=== PATIENT | female | born 1985 | race Caucasian/White ===

== ENCOUNTER 2017-08-29 00:38 | Inpatient (IN) | payer MEDICAID, OTHER ==
[~2017-08-29] VITALS: Ht 162.6 cm; Wt 81.2 kg
[2017-08-29] MEDS ORDERED: BUPR75 PO (01:04)
[2017-08-29] MEDS ORDERED: OMEP20 PO (01:04)
[2017-08-29 01:51] LABS: BASOPHILS # (AUTO) 0.08 K/uL (0.00-0.20); BASOPHILS % (AUTO) 0.7 % (0.0-2.0); EOSINOPHILS # (AUTO) 0.15 K/uL (0.00-0.70); EOSINOPHILS % (AUTO) 1.25 % (1.0-6.0); HEMATOCRIT 37.2 % (36-46); HEMOGLOBIN 12.8 g/dL (12.0-16.0); LYMPHOCYTES # (AUTO) 2.9 K/uL (1.0-4.8); LYMPHOCYTES % (AUTO) 24.1 % (22.0-44.0); MEAN CORPUSCULAR HEMOGLOBIN 31.4 pg (26.0-34.0); MEAN CORPUSCULAR HGB CONC 34.5 G/dL (31.0-37.0); MEAN CORPUSCULAR VOLUME 91 fL (80-100); MONOCYTES # (AUTO) 0.9 K/uL (0.1-1.0); MONOCYTES % (AUTO) 7.1 % (2.0-9.0); NEUTROPHILS # (AUTO) 8.1 K/uL (1.8-7.7); NEUTROPHILS % (AUTO) 66.8 % (40.0-70.0); PLATELET COUNT (AUTO) 260 K/uL (150-450); RED BLOOD CELL COUNT(AUTO) 4.09 MIL/uL (4.00-5.20); RED CELL DISTRIBUTION WIDTH 13.9 % (11.5-14.5); WHITE BLOOD COUNT (AUTO) 12.1 K/uL (4.5-11.0)
[2017-08-29 02:00] LABS: ANION GAP 10 mmol/L (8-16); CALCIUM, TOTAL 9.7 mg/dL (8.8-10.5); CARBON DIOXIDE 26 mmol/L (22-29); CHLORIDE 101 mmol/L (98-107); CREATININE 0.86 mg/dL (0.60-1.30); GLOMERULAR FILTR. RATE CALC > 60 mL/min (>60); POTASSIUM 4.1 mmol/L (3.5-5.1); SODIUM SERUM 137 mmol/L (136-145); UREA NITROGEN, BLOOD 16 mg/dL (7-18)
[2017-08-29 02:07] LABS: ALANINE AMINOTRANSFERASE 28 U/L (12-78); ALBUMIN 4.1 g/dL (3.4-5.0); ASPARTATE AMINOTRANSFERASE 24 U/L (15-37); BILIRUBIN,TOTAL 0.8 mg/dL (0.1-1.0); TOTAL PROTEIN, SERUM 7.8 g/dL (6.4-8.2)
[2017-08-29] MEDS ORDERED: LORazepam 2 MG TABLET PO PRN (03:45)
[2017-08-29] MEDS ORDERED: HALOPERIDOL 5 MG TABLET PO PRN (03:45)
[2017-08-29] MEDS ORDERED: ZOLPIDEM TARTRATE 10 MG TABLET PO PRN (03:45)
[2017-08-29 06:22] VITALS: BP 118/73
[2017-08-29] MEDS ORDERED: IBUPROFEN 400 MG TABLET PO PRN (06:30)
[2017-08-29] MEDS ORDERED: INFLUENZA VIRUS VACCINE QVS 2017-18 (3YR+)/PF 60 MCG/0.5 ML SYRINGE IM ONE (06:30)
[2017-08-29] MEDS ORDERED: ACETAMINOPHEN 325 MG TABLET PO PRN (06:30)
[2017-08-29 08:18] VITALS: BP 124/75
[2017-08-29] MEDS: OMEPRAZOLE 20 MG CAPSULE PO SCH (08:41)
[2017-08-29] MEDS: BuPROPion HCL 75 MG TABLET PO SCH ×2 (13:24→16:29)
[2017-08-29 16:14] VITALS: BP 109/66
[2017-08-29 17:17] VITALS: BP 114/72
[2017-08-29] MEDS: QUEtiapine FUMARATE 25 MG TABLET PO SCH (20:04)
[2017-08-30 03:45] VITALS: BP 127/79
[2017-08-30 08:15] VITALS: BP 124/70
[2017-08-30] MEDS: OMEPRAZOLE 20 MG CAPSULE PO SCH (08:35)
[2017-08-30] MEDS: BuPROPion HCL 75 MG TABLET PO SCH ×3 (08:35→16:03)
[2017-08-30 16:11] VITALS: BP 120/64
[2017-08-30] MEDS: QUEtiapine FUMARATE 25 MG TABLET PO SCH (20:32)
[2017-08-31 06:57] VITALS: BP 107/57
[2017-08-31 07:19] LABS: EOSINOPHILS % (AUTO) 2.5 % (1.0-6.0); HEMATOCRIT 35.8 % (36-46); HEMOGLOBIN 12.3 g/dL (12.0-16.0); LYMPHOCYTES % (AUTO) 36.4 % (22.0-44.0); MEAN CORPUSCULAR HEMOGLOBIN 31.4 pg (26.0-34.0); MEAN CORPUSCULAR HGB CONC 34.2 G/dL (31.0-37.0); MEAN CORPUSCULAR VOLUME 92 fL (80-100); MONOCYTES # (AUTO) 0.7 K/uL (0.1-1.0); MONOCYTES % (AUTO) 8.3 % (2.0-9.0); NEUTROPHILS # (AUTO) 4.3 K/uL (1.8-7.7); NEUTROPHILS % (AUTO) 51.8 % (40.0-70.0); PLATELET COUNT (AUTO) 263 K/uL (150-450); RED CELL DISTRIBUTION WIDTH 13.9 % (11.5-14.5); WHITE BLOOD COUNT (AUTO) 8.3 K/uL (4.5-11.0)
[2017-08-31 07:56] LABS: CHOL/HDL RATIO 6.1 (3.9-5.7); THYROID STIMULATING HORMONE 1.27 uIU/mL (0.36-3.74)
[2017-08-31 08:05] VITALS: BP 115/94
[2017-08-31] MEDS: BuPROPion HCL 75 MG TABLET PO SCH ×3 (08:31→16:27)
[2017-08-31] MEDS: OMEPRAZOLE 20 MG CAPSULE PO SCH (08:31)
[2017-08-31 16:05] VITALS: BP 120/73
[2017-08-31] MEDS: QUEtiapine FUMARATE 25 MG TABLET PO SCH (20:02)
[2017-09-01 00:36] VITALS: BP 101/62
[2017-09-01 08:16] VITALS: BP 112/69
[2017-09-01] MEDS: OMEPRAZOLE 20 MG CAPSULE PO SCH (08:49)
[2017-09-01] MEDS: BuPROPion HCL 75 MG TABLET PO SCH ×3 (08:49→16:07)
[2017-09-01 16:00] VITALS: BP 108/60
[2017-09-01] MEDS: QUEtiapine FUMARATE 25 MG TABLET PO SCH (20:10)
[2017-09-02 00:44] VITALS: BP 108/60
[2017-09-02 08:08] VITALS: BP 104/61
[2017-09-02] MEDS: OMEPRAZOLE 20 MG CAPSULE PO SCH (08:40)
[2017-09-02] MEDS: BuPROPion HCL 75 MG TABLET PO SCH ×3 (08:40→16:08)
[2017-09-02 16:27] VITALS: BP 119/86
[2017-09-02] MEDS: QUEtiapine FUMARATE 25 MG TABLET PO SCH (20:10)
[2017-09-03 06:48] VITALS: BP 100/61
[2017-09-03 08:11] VITALS: BP 109/60
[2017-09-03] MEDS: OMEPRAZOLE 20 MG CAPSULE PO SCH (08:32)
[2017-09-03] MEDS: BuPROPion HCL 75 MG TABLET PO SCH ×3 (08:32→16:16)
[2017-09-03 17:00] VITALS: BP 113/74
[2017-09-03] MEDS: QUEtiapine FUMARATE 25 MG TABLET PO SCH (20:32)
[2017-09-04 00:09] VITALS: BP 108/63
[2017-09-04] MEDS ORDERED: QUET25TA PO (07:58)
[2017-09-04] MEDS: OMEPRAZOLE 20 MG CAPSULE PO SCH (08:46)
[2017-09-04] MEDS: BuPROPion HCL 75 MG TABLET PO SCH (08:46)
[2017-09-04 09:30] VITALS: BP 114/61
== END 2017-09-04 13:26 | disposition home or self-care (01) | DRG 750 ==
LOC: EMS 00:39 → B2S 04:00
PROVIDERS: ADMIT Psychiatry & Neurology Psychiatry; ATTEND Psychiatry & Neurology Psychiatry
DX: F25.1 Schizoaffective disorder, depressive type (principal); R45.851 Suicidal ideations; F41.9 Anxiety disorder, unspecified; K21.9 Gastro-esophageal reflux disease without esophagitis; F15.10 Other stimulant abuse, uncomplicated; Z71.51 Drug abuse counseling and surveillance of drug abuser
CPT/HCPCS: 84443; 99285; G0480

== ENCOUNTER 2017-09-28 14:22 | Inpatient (IN) | payer MEDICAID, OTHER ==
[~2017-09-28] VITALS: Ht 162.6 cm; Wt 79.8 kg
[~2017-09-28 14:22] MED LIST: BUPR75 PO; OMEP20 PO; QUET25TA PO
[2017-09-28 15:08] LABS: EOSINOPHILS % (AUTO) 0.4 % (1.0-6.0); HEMATOCRIT 38.5 % (36-46); HEMOGLOBIN 13.5 g/dL (12.0-16.0); LYMPHOCYTES # (AUTO) 4.2 K/uL (1.0-4.8); MEAN CORPUSCULAR HEMOGLOBIN 31.1 pg (26.0-34.0); MEAN CORPUSCULAR HGB CONC 34.9 G/dL (31.0-37.0); MEAN CORPUSCULAR VOLUME 89 fL (80-100); MONOCYTES # (AUTO) 0.8 K/uL (0.1-1.0); MONOCYTES % (AUTO) 6.8 % (2.0-9.0); NEUTROPHILS # (AUTO) 6.8 K/uL (1.8-7.7); NEUTROPHILS % (AUTO) 56.8 % (40.0-70.0); PLATELET COUNT (AUTO) 308 K/uL (150-450); RED BLOOD CELL COUNT(AUTO) 4.33 MIL/uL (4.00-5.20); RED CELL DISTRIBUTION WIDTH 13.7 % (11.5-14.5)
[2017-09-28 15:37] LABS: ALANINE AMINOTRANSFERASE 31 U/L (12-78); ALBUMIN 4.2 g/dL (3.4-5.0); ALKALINE PHOSPHATASE 85 U/L (46-116); ANION GAP 15 mmol/L (8-16); ASPARTATE AMINOTRANSFERASE 30 U/L (15-37); BILIRUBIN,TOTAL 0.6 mg/dL (0.1-1.0); CALCIUM, TOTAL 9.5 mg/dL (8.8-10.5); CARBON DIOXIDE 21 mmol/L (22-29); CHLORIDE 100 mmol/L (98-107); CREATININE 0.86 mg/dL (0.60-1.30); GLOMERULAR FILTR. RATE CALC > 60 mL/min (>60); GLUCOSE,RANDOM 81 mg/dL (70-110); POTASSIUM 3.8 mmol/L (3.5-5.1); SODIUM SERUM 136 mmol/L (136-145); TOTAL PROTEIN, SERUM 8.2 g/dL (6.4-8.2); UREA NITROGEN, BLOOD 11 mg/dL (7-18)
[2017-09-28 16:08] LABS: AMPHET/METH SCREEN,URINE POSITIVE (NEGATIVE); BARBITURATE SCREEN, URINE NEGATIVE (NEGATIVE); BENZODIAZEPINES SCREEN,URINE NEGATIVE (NEGATIVE); CANNABINOID SCREEN,URINE NEGATIVE (NEGATIVE); COCAINE SCREEN,URINE NEGATIVE (NEGATIVE); METHADONE SCREEN, URINE NEGATIVE (NEGATIVE); OPIATE SCREEN,URINE NEGATIVE (NEGATIVE)
[2017-09-28 16:13] LABS: PHENCYCLIDINE SCREEN,URINE NEGATIVE (NEGATIVE)
[2017-09-28] MEDS ORDERED: LORazepam 2 MG TABLET PO ONE (17:00)
[2017-09-28] MEDS ORDERED: HALOPERIDOL 5 MG TABLET PO ONE (17:00)
[2017-09-28] MEDS ORDERED: QUEtiapine FUMARATE 100 MG TABLET PO PRN (17:45)
[2017-09-28] MEDS ORDERED: LORazepam 2 MG TABLET PO PRN (17:45)
[2017-09-28] MEDS ORDERED: BuPROPion HCL 75 MG TABLET PO SCH (20:08)
[2017-09-28 20:34] VITALS: BP 92/60
[2017-09-28] MEDS ORDERED: INFLUENZA VIRUS VACCINE QVS 2017-18 (3YR+)/PF 60 MCG/0.5 ML SYRINGE IM ONE (20:45)
[2017-09-28] MEDS ORDERED: QUEtiapine FUMARATE 25 MG TABLET PO SCH (21:00)
[2017-09-29] VITALS (7 sets, daily range): BP systolic 120–128; BP diastolic 68–99
[2017-09-29] MEDS: OMEPRAZOLE 20 MG CAPSULE PO SCH (06:17)
[2017-09-29] MEDS ORDERED: LOPERAMIDE HCL 2 MG CAPSULE PO PRN (06:30)
[2017-09-29] MEDS ORDERED: PROMETHAZINE HCL 25 MG TABLET PO PRN (06:30)
[2017-09-29] MEDS ORDERED: GuaiFENesin/D-METHORPHAN [SUGAR-FREE] 200-20MG/10 ML SYRUP UDCUP PO PRN (06:30)
[2017-09-29] MEDS ORDERED: HydrOXYzine PAMOATE 50 MG CAPSULE PO PRN (06:30)
[2017-09-29] MEDS ORDERED: ACETAMINOPHEN 325 MG TABLET PO PRN ×2 (06:30→20:45)
[2017-09-29] MEDS ORDERED: TUBERCULIN, PURIFIED PROTEIN DERIVATIVE 5 TU/0.1 ML SYG ID ONE (06:30)
[2017-09-29] MEDS ORDERED: MAGNESIUM HYDROXIDE SUSPENSION 30 ML UDCUP PO PRN (06:30)
[2017-09-29] MEDS ORDERED: MAG HYDROX/AL HYDROX/SIMETH ES 30 ML SUSPENSION UDCUP PO PRN (06:30)
[2017-09-29] MEDS ORDERED: DIAZEPAM 10 MG TABLET PO PRN (06:45)
[2017-09-29] MEDS: MULTIVITAMINS WITH MINERALS, THERAPEUTIC TABLET PO SCH (09:31)
[2017-09-29] MEDS: THIAMINE HCL 100 MG TABLET PO SCH ×2 (09:31→16:33)
[2017-09-29] MEDS: FOLIC ACID 1 MG TABLET PO SCH (09:32)
[2017-09-29] MEDS: NALTREXONE HCL 50 MG TABLET PO SCH (09:32)
[2017-09-29] MEDS: QUEtiapine FUMARATE 25 MG TABLET PO SCH (20:42)
[2017-09-29] MEDS ORDERED: IBUPROFEN 400 MG TABLET PO PRN (20:45)
[2017-09-30 03:20] VITALS: BP 127/75
[2017-09-30] MEDS: OMEPRAZOLE 20 MG CAPSULE PO SCH (06:58)
[2017-09-30] MEDS ORDERED: DIAZEPAM 10 MG TABLET PO PRN (07:00)
[2017-09-30 07:26] VITALS: BP 143/63
[2017-09-30] MEDS: THIAMINE HCL 100 MG TABLET PO SCH ×2 (09:39→17:33)
[2017-09-30] MEDS: FOLIC ACID 1 MG TABLET PO SCH (09:39)
[2017-09-30] MEDS: NALTREXONE HCL 50 MG TABLET PO SCH (09:39)
[2017-09-30] MEDS: DIAZEPAM 10 MG TABLET PO SCH ×4 (09:39→20:58)
[2017-09-30] MEDS: MULTIVITAMINS WITH MINERALS, THERAPEUTIC TABLET PO SCH (09:39)
[2017-09-30 11:19] VITALS: BP 109/65
[2017-09-30 16:49] VITALS: BP 126/68
[2017-09-30 16:59] VITALS: BP 126/68
[2017-09-30] MEDS: QUEtiapine FUMARATE 25 MG TABLET PO SCH (20:58)
[2017-10-01 06:09] VITALS: BP 122/70
[2017-10-01] MEDS: OMEPRAZOLE 20 MG CAPSULE PO SCH (06:59)
[2017-10-01 07:59] LABS: HEMOGLOBIN A1C 5.4 % (4.5-6.2)
[2017-10-01 08:07] LABS: THYROID STIMULATING HORMONE 0.56 uIU/mL (0.36-3.74)
[2017-10-01] MEDS: THIAMINE HCL 100 MG TABLET PO SCH ×2 (09:55→16:33)
[2017-10-01] MEDS: FOLIC ACID 1 MG TABLET PO SCH (09:56)
[2017-10-01] MEDS: NALTREXONE HCL 50 MG TABLET PO SCH (09:56)
[2017-10-01] MEDS: MULTIVITAMINS WITH MINERALS, THERAPEUTIC TABLET PO SCH (09:56)
[2017-10-01] MEDS: DIAZEPAM 10 MG TABLET PO SCH ×3 (09:56→16:33)
[2017-10-01 14:33] VITALS: BP 128/78
[2017-10-01 14:34] VITALS: BP 128/78
[2017-10-01 19:44] VITALS: BP 111/71
[2017-10-01] MEDS: QUEtiapine FUMARATE 25 MG TABLET PO SCH (20:12)
[2017-10-02] MEDS: OMEPRAZOLE 20 MG CAPSULE PO SCH (06:27)
[2017-10-02] MEDS ORDERED: DIAZEPAM 5 MG TABLET PO PRN (07:00)
[2017-10-02] MEDS ORDERED: DIAZEPAM 5 MG TABLET PO SCH (09:00)
[2017-10-02] MEDS: MULTIVITAMINS WITH MINERALS, THERAPEUTIC TABLET PO SCH (09:26)
[2017-10-02] MEDS: THIAMINE HCL 100 MG TABLET PO SCH ×2 (09:26→16:08)
[2017-10-02] MEDS: FOLIC ACID 1 MG TABLET PO SCH (09:26)
[2017-10-02] MEDS: BuPROPion HCL 150 MG SR TABLET PO SCH ×3 (09:27→16:08)
[2017-10-02 13:54] VITALS: BP 124/55
[2017-10-02 16:43] VITALS: BP 127/52
[2017-10-02] MEDS: QUEtiapine FUMARATE 25 MG TABLET PO SCH (20:03)
[2017-10-03] MEDS: OMEPRAZOLE 20 MG CAPSULE PO SCH (06:55)
[2017-10-03] MEDS ORDERED: DIAZEPAM 5 MG TABLET PO PRN (07:00)
[2017-10-03 09:02] VITALS: BP 106/62
[2017-10-03] MEDS: THIAMINE HCL 100 MG TABLET PO SCH ×2 (09:20→17:21)
[2017-10-03] MEDS: BuPROPion HCL 150 MG SR TABLET PO SCH ×3 (09:20→17:21)
[2017-10-03] MEDS: MULTIVITAMINS WITH MINERALS, THERAPEUTIC TABLET PO SCH (09:20)
[2017-10-03] MEDS: FOLIC ACID 1 MG TABLET PO SCH (09:20)
[2017-10-03 19:44] VITALS: BP 132/69
[2017-10-03] MEDS: QUEtiapine FUMARATE 25 MG TABLET PO SCH (21:26)
[2017-10-04] MEDS: OMEPRAZOLE 20 MG CAPSULE PO SCH (06:47)
[2017-10-04] MEDS ORDERED: THIA100 PO (10:26)
[2017-10-04] MEDS ORDERED: FOLI1 PO (10:26)
[2017-10-04] MEDS ORDERED: MULT-723 PO (10:28)
[2017-10-04] MEDS: MULTIVITAMINS WITH MINERALS, THERAPEUTIC TABLET PO SCH (11:04)
[2017-10-04] MEDS: BuPROPion HCL 150 MG SR TABLET PO SCH ×2 (11:05→13:00)
[2017-10-04] MEDS: FOLIC ACID 1 MG TABLET PO SCH (11:05)
[2017-10-04] MEDS: THIAMINE HCL 100 MG TABLET PO SCH (11:05)
== END 2017-10-04 12:30 | disposition home or self-care (01) | DRG 750 ==
LOC: EMS 14:22 → 3EI 20:03
PROVIDERS: ADMIT Psychiatry & Neurology Psychiatry; ATTEND Psychiatry & Neurology Psychiatry
DX: F25.0 Schizoaffective disorder, bipolar type (principal); R45.851 Suicidal ideations; Z91.19 Patient's noncompliance with other medical treatment and regimen; D72.829 Elevated white blood cell count, unspecified; F10.129 Alcohol abuse with intoxication, unspecified; F15.90 Other stimulant use, unspecified, uncomplicated; F17.210 Nicotine dependence, cigarettes, uncomplicated; F41.9 Anxiety disorder, unspecified; K21.9 Gastro-esophageal reflux disease without esophagitis; F19.10 Other psychoactive substance abuse, uncomplicated
CPT/HCPCS: 81025; 83036; 84443; 87081; 93005; 99285; G0480

== ENCOUNTER 2018-10-10 23:37 | Inpatient (IN) | payer MEDICAID, OTHER ==
[~2018-10-10] VITALS: Ht 165.1 cm; Wt 75.2 kg
[~2018-10-10 23:37] MED LIST changes: +FOLI1 PO; +MULT-723 PO; +THIA100T67 PO
[2018-10-11 00:29] LABS: EOSINOPHILS % (AUTO) 1.6 % (1.0-6.0); MONOCYTES # (AUTO) 0.5 K/uL (0.1-1.0); NEUTROPHILS # (AUTO) 6.1 K/uL (1.8-7.7)
[2018-10-11 00:31] LABS: ANION GAP 12 mmol/L (8-16); BASOPHILS % (AUTO) 0.9 % (0.0-2.0); CALCIUM, TOTAL 9.2 mg/dL (8.8-10.5); CARBON DIOXIDE 24 mmol/L (22-29); CHLORIDE 103 mmol/L (98-107); CREATININE 0.75 mg/dL (0.60-1.30); GLOMERULAR FILTR. RATE CALC > 60 mL/min (>60); GLUCOSE,RANDOM 78 mg/dL (70-110); HEMATOCRIT 40.1 % (36-46); HEMOGLOBIN 13.7 g/dL (12.0-16.0); LYMPHOCYTES # (AUTO) 2.7 K/uL (1.0-4.8); LYMPHOCYTES % (AUTO) 28.1 % (22.0-44.0); MEAN CORPUSCULAR HEMOGLOBIN 30.7 pg (26.0-34.0); MEAN CORPUSCULAR HGB CONC 34.1 G/dL (31.0-37.0); MEAN CORPUSCULAR VOLUME 90 fL (80-100); MONOCYTES % (AUTO) 5.6 % (2.0-9.0); NEUTROPHILS % (AUTO) 63.8 % (40.0-70.0); PLATELET COUNT (AUTO) 287 K/uL (150-450); POTASSIUM 3.4 mmol/L (3.5-5.1); RED BLOOD CELL COUNT(AUTO) 4.45 MIL/uL (4.00-5.20); RED CELL DISTRIBUTION WIDTH 14.1 % (11.5-14.5); SODIUM SERUM 139 mmol/L (136-145); UREA NITROGEN, BLOOD 7 mg/dL (7-18)
[2018-10-11 00:43] LABS: ALANINE AMINOTRANSFERASE 21 U/L (12-78); ALKALINE PHOSPHATASE 73 U/L (46-116); ASPARTATE AMINOTRANSFERASE 22 U/L (15-37); BILIRUBIN,TOTAL 0.2 mg/dL (0.1-1.0); HCG,QUANTITATIVE < 1 mIU/mL (0-6); TOTAL PROTEIN, SERUM 7.7 g/dL (6.4-8.2)
[2018-10-11 05:56] LABS: AMPHET/METH SCREEN,URINE POSITIVE (NEGATIVE); BARBITURATE SCREEN, URINE NEGATIVE (NEGATIVE); BENZODIAZEPINES SCREEN,URINE NEGATIVE (NEGATIVE); CANNABINOID SCREEN,URINE NEGATIVE (NEGATIVE); COCAINE SCREEN,URINE NEGATIVE (NEGATIVE); METHADONE SCREEN, URINE NEGATIVE (NEGATIVE); OPIATE SCREEN,URINE NEGATIVE (NEGATIVE)
[2018-10-11 06:00] LABS: PHENCYCLIDINE SCREEN,URINE NEGATIVE (NEGATIVE)
[2018-10-11] MEDS ORDERED: ZOLPIDEM TARTRATE 10 MG TABLET PO PRN (06:45)
[2018-10-11 11:01] VITALS: BP 134/83
[2018-10-11] MEDS ORDERED: BuPROPion HCL 75 MG TABLET PO SCH (17:00)
[2018-10-11 18:37] VITALS: BP 135/82
[2018-10-11] MEDS: QUEtiapine FUMARATE 25 MG TABLET PO SCH (20:28)
[2018-10-12 07:09] LABS: HEMOGLOBIN A1C 4.8 % (4.5-6.2)
[2018-10-12 07:30] LABS: CHOL/HDL RATIO 4.6 (3.9-5.7); FREE T4 (FREE THYROXINE) 0.83 ng/dL (0.76-1.46); THYROID STIMULATING HORMONE 2.07 uIU/mL (0.36-3.74)
[2018-10-12 08:32] VITALS: BP 104/69
[2018-10-12] MEDS: BuPROPion HCL XL 150 MG ER TABLET PO SCH ×2 (09:00→09:20)
[2018-10-12] MEDS: QUEtiapine FUMARATE 25 MG TABLET PO SCH (20:46)
[2018-10-12 20:55] VITALS: BP 107/68
[2018-10-13 08:41] VITALS: BP 112/59
[2018-10-13] MEDS: BuPROPion HCL XL 150 MG ER TABLET PO SCH (10:58)
[2018-10-13] MEDS ORDERED: QUET200T PO (16:19)
[2018-10-13 17:14] VITALS: BP 106/68
[2018-10-13] MEDS: QUEtiapine FUMARATE 200 MG TABLET PO SCH (21:33)
[2018-10-14] MEDS: BuPROPion HCL XL 150 MG ER TABLET PO SCH (08:52)
[2018-10-14] MEDS: QUEtiapine FUMARATE 200 MG TABLET PO SCH ×2 (08:52→21:08)
[2018-10-14 12:52] VITALS: BP 155/55
[2018-10-14 16:00] VITALS: BP 138/69
[2018-10-15 08:44] VITALS: BP 100/51
[2018-10-15] MEDS: BuPROPion HCL XL 150 MG ER TABLET PO SCH (09:17)
[2018-10-15] MEDS: QUEtiapine FUMARATE 200 MG TABLET PO SCH ×2 (09:17→21:17)
[2018-10-15 16:30] VITALS: BP 100/61
[2018-10-16 09:50] VITALS: BP 101/67
[2018-10-16] MEDS: BuPROPion HCL XL 150 MG ER TABLET PO SCH (11:53)
[2018-10-16] MEDS: QUEtiapine FUMARATE 200 MG TABLET PO SCH ×2 (11:53→20:16)
[2018-10-16 12:53] VITALS: BP 114/68
[2018-10-16] MEDS: ACETAMINOPHEN 325 MG TABLET PO PRN (12:53)
[2018-10-16 16:33] VITALS: BP 103/63
[2018-10-17] MEDS: QUEtiapine FUMARATE 200 MG TABLET PO SCH ×2 (09:46→20:23)
[2018-10-17] MEDS: BuPROPion HCL XL 150 MG ER TABLET PO SCH (09:46)
[2018-10-17 10:31] VITALS: BP 107/63
[2018-10-17 10:32] VITALS: BP 106/68
[2018-10-17] MEDS: ACETAMINOPHEN 325 MG TABLET PO PRN ×2 (10:33→20:23)
[2018-10-17 14:31] VITALS: BP 112/68
[2018-10-17] MEDS: IBUPROFEN 400 MG TABLET PO PRN (14:31)
[2018-10-17 16:50] VITALS: BP 102/66
[2018-10-17 20:29] VITALS: BP 110/72
[2018-10-18 09:30] VITALS: BP 109/71
[2018-10-18] MEDS: BuPROPion HCL XL 150 MG ER TABLET PO SCH (09:31)
[2018-10-18] MEDS: QUEtiapine FUMARATE 200 MG TABLET PO SCH ×2 (09:31→20:08)
[2018-10-18] MEDS: THIAMINE HCL 100 MG TABLET PO SCH (09:32)
[2018-10-18] MEDS: IBUPROFEN 400 MG TABLET PO PRN (09:34)
[2018-10-18] MEDS: LORazepam 2 MG TABLET PO PRN (09:34)
[2018-10-18] MEDS: BENZOCAINE 10% 7 GM GEL TP PRN (14:19)
[2018-10-18 16:00] VITALS: BP 105/69
[2018-10-18 20:08] VITALS: BP 113/70
[2018-10-18] MEDS: ACETAMINOPHEN 325 MG TABLET PO PRN (20:08)
[2018-10-19] MEDS: HALOPERIDOL 5 MG TABLET PO PRN ×2 (02:10→17:56)
[2018-10-19] MEDS: IBUPROFEN 400 MG TABLET PO PRN (02:10)
[2018-10-19 02:12] VITALS: BP 120/75
[2018-10-19] MEDS: QUEtiapine FUMARATE 200 MG TABLET PO SCH ×2 (09:37→21:27)
[2018-10-19] MEDS: BuPROPion HCL XL 150 MG ER TABLET PO SCH (09:37)
[2018-10-19] MEDS: LORazepam 2 MG TABLET PO PRN ×2 (09:37→17:57)
[2018-10-19] MEDS: THIAMINE HCL 100 MG TABLET PO SCH (09:37)
[2018-10-19] MEDS: BENZOCAINE 10% 7 GM GEL TP PRN (10:31)
[2018-10-19 11:33] VITALS: BP 103/69
[2018-10-19 16:44] VITALS: BP 98/59
[2018-10-19 17:55] VITALS: BP 112/68
[2018-10-19] MEDS: ACETAMINOPHEN 325 MG TABLET PO PRN (17:56)
[2018-10-20 00:05] VITALS: BP 102/61
[2018-10-20 09:30] VITALS: BP 110/60
[2018-10-20] MEDS: QUEtiapine FUMARATE 200 MG TABLET PO SCH (09:43)
[2018-10-20] MEDS: BuPROPion HCL XL 150 MG ER TABLET PO SCH (09:43)
[2018-10-20] MEDS: THIAMINE HCL 100 MG TABLET PO SCH (09:43)
[2018-10-20] MEDS: IBUPROFEN 400 MG TABLET PO PRN (09:46)
[2018-10-20] MEDS ORDERED: THIA100T67 PO (11:41)
== END 2018-10-20 18:30 | disposition home or self-care (01) | DRG 750 ==
LOC: EMS 23:37 → 3EC 10-11 05:30 → 3EI 10-15 19:45
DX: F25.0 Schizoaffective disorder, bipolar type (principal); F15.20 Other stimulant dependence, uncomplicated; K21.9 Gastro-esophageal reflux disease without esophagitis; F10.10 Alcohol abuse, uncomplicated; F41.9 Anxiety disorder, unspecified; E87.6 Hypokalemia; Z91.5 Personal history of self-harm; Z79.899 Other long term (current) drug therapy; Y90.4 Blood alcohol level of 80-99 mg/100 ml; Z71.51 Drug abuse counseling and surveillance of drug abuser
CPT/HCPCS: 83036; 84439; 84443; G0480

== ENCOUNTER 2021-01-31 08:04 | Inpatient (IN) | payer MEDICAID, OTHER ==
[~2021-01-31] VITALS: Ht 162.6 cm; Wt 57.0 kg
[~2021-01-31 08:04] MED LIST changes: -FOLI1 PO; -MULT-723 PO; -OMEP20 PO; +QUET200T PO; -QUET25TA PO; -THIA100T67 PO; +THIAMINE HCL100 MG PO
[2021-01-31 09:04] LABS: EOSINOPHILS % (AUTO) 1.9 % (1.0-6.0); HEMATOCRIT 38.1 % (36-46); HEMOGLOBIN 12.8 g/dL (12.0-16.0); LYMPHOCYTES % (AUTO) 22.4 % (22.0-44.0); MEAN CORPUSCULAR HGB CONC 33.7 G/dL (31.0-37.0); MEAN CORPUSCULAR VOLUME 92 fL (80-100); MONOCYTES # (AUTO) 0.6 K/uL (0.1-1.0); MONOCYTES % (AUTO) 6.9 % (2.0-9.0); NEUTROPHILS # (AUTO) 6.1 K/uL (1.8-7.7); NEUTROPHILS % (AUTO) 67.8 % (40.0-70.0); PLATELET COUNT (AUTO) 294 K/uL (150-450); RED BLOOD CELL COUNT(AUTO) 4.14 MIL/uL (4.00-5.20); RED CELL DISTRIBUTION WIDTH 13.5 % (11.5-14.5)
[2021-01-31 09:18] LABS: ALANINE AMINOTRANSFERASE 26 U/L (12-78); ALBUMIN 4.3 g/dL (3.4-5.0); ALKALINE PHOSPHATASE 71 U/L (46-116); ANION GAP 10 mmol/L (8-16); ASPARTATE AMINOTRANSFERASE 18 U/L (15-37); BILIRUBIN,TOTAL 0.3 mg/dL (0.1-1.0); CALCIUM, TOTAL 9.4 mg/dL (8.8-10.5); CARBON DIOXIDE 26 mmol/L (22-29); CHLORIDE 102 mmol/L (98-107); CREATININE 0.72 mg/dL (0.60-1.30); GLOMERULAR FILTR. RATE CALC > 60 mL/min (>60); GLUCOSE,RANDOM 93 mg/dL (70-110); POTASSIUM 3.8 mmol/L (3.5-5.1); SODIUM SERUM 138 mmol/L (136-145); TOTAL PROTEIN, SERUM 7.4 g/dL (6.4-8.2); UREA NITROGEN, BLOOD 16 mg/dL (7-18)
[2021-01-31 11:45] LABS: COVID AG,FIA SOURCE NASOPHARYNGEAL
[2021-01-31 12:26] LABS: AMPHET/METH SCREEN,URINE POSITIVE (NEGATIVE); BARBITURATE SCREEN, URINE NEGATIVE (NEGATIVE); BENZODIAZEPINES SCREEN,URINE NEGATIVE (NEGATIVE); CANNABINOID SCREEN,URINE NEGATIVE (NEGATIVE); COCAINE SCREEN,URINE NEGATIVE (NEGATIVE); METHADONE SCREEN, URINE NEGATIVE (NEGATIVE); OPIATE SCREEN,URINE NEGATIVE (NEGATIVE); PHENCYCLIDINE SCREEN,URINE NEGATIVE (NEGATIVE)
[2021-01-31] MEDS: HALOPERIDOL 5 MG TABLET PO PRN (16:05)
[2021-01-31] MEDS: LORazepam 2 MG TABLET PO PRN (16:05)
[2021-01-31 16:39] VITALS: BP 104/67
[2021-02-01 00:34] VITALS: BP 101/62
[2021-02-01 08:16] VITALS: BP 119/66
[2021-02-01] MEDS: QUEtiapine FUMARATE 100 MG TABLET PO SCH ×2 (13:30→21:12)
[2021-02-01 16:07] VITALS: BP 104/79
[2021-02-01] MEDS: LORazepam 2 MG TABLET PO PRN (16:39)
[2021-02-01] MEDS ORDERED: GuaiFENesin/D-METHORPHAN [SUGAR-FREE] 200-20MG/10 ML SYRUP UDCUP PO PRN (20:30)
[2021-02-01] MEDS ORDERED: MAGNESIUM HYDROXIDE SUSPENSION 30 ML UDCUP PO PRN (20:30)
[2021-02-01] MEDS ORDERED: NICOTINE 14 MG/24 HOUR PATCH TD PRN (20:30)
[2021-02-01] MEDS ORDERED: ONDANSETRON HCL 4 MG TABLET PO PRN (20:30)
[2021-02-01] MEDS ORDERED: MAG HYDROX/AL HYDROX/SIMETH ES 30 ML SUSPENSION UDCUP PO PRN (20:30)
[2021-02-01] MEDS ORDERED: CloNIDine HCL 0.1 MG TABLET PO PRN (20:30)
[2021-02-01] MEDS ORDERED: DOCUSATE SODIUM 100 MG CAPSULE PO PRN (20:30)
[2021-02-01] MEDS ORDERED: LOPERAMIDE HCL 2 MG CAPSULE PO PRN (20:30)
[2021-02-01] MEDS ORDERED: PETROLATUM,WHITE 28 GM JELLY TP PRN (20:30)
[2021-02-01] MEDS ORDERED: ALBUTEROL SULFATE HFA 90 MCG/PUFF 8 GM INHALER IH PRN (20:30)
[2021-02-01] MEDS ORDERED: ACETAMINOPHEN 325 MG TABLET PO PRN (20:30)
[2021-02-02 06:07] VITALS: BP 110/70
[2021-02-02 08:15] VITALS: BP 106/60
[2021-02-02 08:30] VITALS: BP 112/70
[2021-02-02] MEDS: QUEtiapine FUMARATE 100 MG TABLET PO SCH ×2 (08:33→20:29)
[2021-02-02] MEDS: LORazepam 2 MG TABLET PO PRN (08:33)
[2021-02-02 17:03] VITALS: BP 104/62
[2021-02-03 00:33] VITALS: BP 114/71
[2021-02-03 07:53] LABS: BASOPHILS % (AUTO) 0.8 % (0.0-2.0); EOSINOPHILS % (AUTO) 2.6 % (1.0-6.0); HEMATOCRIT 35.5 % (36-46); HEMOGLOBIN 11.9 g/dL (12.0-16.0); LYMPHOCYTES # (AUTO) 2.2 K/uL (1.0-4.8); LYMPHOCYTES % (AUTO) 26.9 % (22.0-44.0); MEAN CORPUSCULAR HEMOGLOBIN 31.3 pg (26.0-34.0); MEAN CORPUSCULAR HGB CONC 33.6 G/dL (31.0-37.0); MEAN CORPUSCULAR VOLUME 93 fL (80-100); MONOCYTES # (AUTO) 0.6 K/uL (0.1-1.0); MONOCYTES % (AUTO) 6.9 % (2.0-9.0); NEUTROPHILS # (AUTO) 5.1 K/uL (1.8-7.7); NEUTROPHILS % (AUTO) 62.8 % (40.0-70.0); PLATELET COUNT (AUTO) 261 K/uL (150-450); RED BLOOD CELL COUNT(AUTO) 3.82 MIL/uL (4.00-5.20); RED CELL DISTRIBUTION WIDTH 13.4 % (11.5-14.5)
[2021-02-03 08:03] VITALS: BP 122/73
[2021-02-03] MEDS: LORazepam 2 MG TABLET PO PRN (08:23)
[2021-02-03] MEDS: QUEtiapine FUMARATE 100 MG TABLET PO SCH ×2 (08:23→20:06)
[2021-02-03 08:30] LABS: ALANINE AMINOTRANSFERASE 21 U/L (12-78); ALBUMIN 3.3 g/dL (3.4-5.0); ALKALINE PHOSPHATASE 58 U/L (46-116); ANION GAP 5 mmol/L (8-16); ASPARTATE AMINOTRANSFERASE 16 U/L (15-37); BILIRUBIN,TOTAL 0.2 mg/dL (0.1-1.0); CALCIUM, TOTAL 8.6 mg/dL (8.8-10.5); CARBON DIOXIDE 29 mmol/L (22-29); CHLORIDE 106 mmol/L (98-107); CHOL/HDL RATIO 2.7 (3.9-5.7); CHOLESTEROL 151 mg/dL (131-200); CREATININE 0.58 mg/dL (0.60-1.30); FREE T4 (FREE THYROXINE) 0.85 ng/dL (0.76-1.46); GLOMERULAR FILTR. RATE CALC > 60 mL/min (>60); GLUCOSE,RANDOM 93 mg/dL (70-110); HDL CHOLESTEROL 56 mg/dL (40-60); LDL CHOL (CALC.) 84 mg/dL (0-130); POTASSIUM 4.2 mmol/L (3.5-5.1); SODIUM SERUM 140 mmol/L (136-145); THYROID STIMULATING HORMONE 0.87 uIU/mL (0.36-3.74); TOTAL PROTEIN, SERUM 6.3 g/dL (6.4-8.2); TRIGLYCERIDES 56 mg/dL (15-150); UREA NITROGEN, BLOOD 18 mg/dL (7-18)
[2021-02-03 16:06] VITALS: BP 101/73
[2021-02-04 02:45] VITALS: BP 118/76
[2021-02-04] MEDS: QUEtiapine FUMARATE 100 MG TABLET PO SCH ×2 (08:19→20:01)
[2021-02-04] MEDS: LORazepam 2 MG TABLET PO PRN ×2 (08:19→16:45)
[2021-02-04 08:22] VITALS: BP 120/84
[2021-02-04] MEDS ORDERED: THIA100T80 PO (12:42)
[2021-02-04] MEDS ORDERED: BUPR-93 PO (12:43)
[2021-02-04 16:24] VITALS: BP 100/66
[2021-02-04] MEDS: FERROUS SULFATE 325 MG EC TABLET PO SCH (16:45)
[2021-02-05 02:00] VITALS: BP 100/61
[2021-02-05] MEDS: IBUPROFEN 400 MG TABLET PO PRN (03:16)
[2021-02-05] MEDS: FERROUS SULFATE 325 MG EC TABLET PO SCH ×2 (06:57→16:16)
[2021-02-05 08:12] VITALS: BP 103/62
[2021-02-05] MEDS: QUEtiapine FUMARATE 100 MG TABLET PO SCH ×2 (08:38→20:14)
[2021-02-05 08:40] VITALS: BP 110/70
[2021-02-05] MEDS: LORazepam 2 MG TABLET PO PRN (08:41)
[2021-02-05 16:04] VITALS: BP 102/70
[2021-02-05] MEDS: HALOPERIDOL 5 MG TABLET PO PRN (16:16)
[2021-02-06 04:12] VITALS: BP 101/64
[2021-02-06] MEDS: FERROUS SULFATE 325 MG EC TABLET PO SCH ×2 (06:15→16:23)
[2021-02-06 08:07] VITALS: BP 109/53
[2021-02-06] MEDS: QUEtiapine FUMARATE 100 MG TABLET PO SCH ×2 (08:55→20:44)
[2021-02-06] MEDS: LORazepam 2 MG TABLET PO PRN ×2 (08:55→16:30)
[2021-02-06 16:10] VITALS: BP 101/83
[2021-02-07 00:10] VITALS: BP 104/78
[2021-02-07] MEDS: FERROUS SULFATE 325 MG EC TABLET PO SCH ×2 (06:05→16:11)
[2021-02-07 08:08] VITALS: BP 103/56
[2021-02-07] MEDS: QUEtiapine FUMARATE 100 MG TABLET PO SCH ×2 (08:40→20:34)
[2021-02-07 16:07] VITALS: BP 126/66
[2021-02-07] MEDS: HALOPERIDOL 5 MG TABLET PO PRN (21:13)
[2021-02-07] MEDS: ZOLPIDEM TARTRATE 10 MG TABLET PO PRN (23:15)
[2021-02-08 01:33] VITALS: BP 119/66
[2021-02-08] MEDS: FERROUS SULFATE 325 MG EC TABLET PO SCH ×2 (06:51→15:57)
[2021-02-08 08:05] VITALS: BP 109/68
[2021-02-08] MEDS: QUEtiapine FUMARATE 100 MG TABLET PO SCH (08:20)
[2021-02-08] MEDS: LORazepam 2 MG TABLET PO PRN ×2 (08:20→15:57)
[2021-02-08 16:07] VITALS: BP 101/69
[2021-02-08] MEDS: QUEtiapine FUMARATE 200 MG TABLET PO SCH (20:38)
[2021-02-08] MEDS: ZOLPIDEM TARTRATE 10 MG TABLET PO PRN (20:41)
[2021-02-09 06:18] VITALS: BP 112/68
[2021-02-09] MEDS: FERROUS SULFATE 325 MG EC TABLET PO SCH ×2 (06:45→16:32)
[2021-02-09 08:04] VITALS: BP 119/75
[2021-02-09] MEDS: QUEtiapine FUMARATE 200 MG TABLET PO SCH ×2 (08:09→21:04)
[2021-02-09] MEDS: LORazepam 2 MG TABLET PO PRN ×3 (08:10→16:32)
[2021-02-09] MEDS: ZOLPIDEM TARTRATE 10 MG TABLET PO PRN (21:04)
[2021-02-09] MEDS: DIVALPROEX SODIUM 500 MG DR TABLET PO SCH (23:18)
[2021-02-10 01:05] VITALS: BP 117/71
[2021-02-10] MEDS: IBUPROFEN 400 MG TABLET PO PRN (01:11)
[2021-02-10 01:33] VITALS: BP 117/71
[2021-02-10] MEDS: FERROUS SULFATE 325 MG EC TABLET PO SCH ×2 (06:32→16:20)
[2021-02-10] MEDS: DIVALPROEX SODIUM 500 MG DR TABLET PO SCH ×2 (08:44→20:46)
[2021-02-10] MEDS: QUEtiapine FUMARATE 200 MG TABLET PO SCH ×2 (08:44→20:46)
[2021-02-10] MEDS: LORazepam 2 MG TABLET PO PRN ×2 (08:44→16:21)
[2021-02-10 10:35] VITALS: BP 108/70
[2021-02-10] MEDS: HALOPERIDOL 5 MG TABLET PO PRN (10:59)
[2021-02-10 16:25] VITALS: BP 107/62
[2021-02-10] MEDS: ZOLPIDEM TARTRATE 10 MG TABLET PO PRN (21:04)
[2021-02-11 01:27] VITALS: BP 106/68
[2021-02-11] MEDS: FERROUS SULFATE 325 MG EC TABLET PO SCH ×2 (06:40→16:34)
[2021-02-11 08:08] VITALS: BP 107/62
[2021-02-11] MEDS: LORazepam 2 MG TABLET PO PRN ×2 (09:18→19:03)
[2021-02-11] MEDS: QUEtiapine FUMARATE 200 MG TABLET PO SCH ×2 (09:18→20:09)
[2021-02-11] MEDS: DIVALPROEX SODIUM 500 MG DR TABLET PO SCH ×2 (09:18→20:09)
[2021-02-11] MEDS: IBUPROFEN 400 MG TABLET PO PRN (10:03)
[2021-02-11 16:19] VITALS: BP 92/52
[2021-02-11] MEDS: ZOLPIDEM TARTRATE 10 MG TABLET PO PRN (20:09)
[2021-02-12 05:51] VITALS: BP 118/76
[2021-02-12] MEDS: FERROUS SULFATE 325 MG EC TABLET PO SCH ×2 (06:30→16:57)
[2021-02-12] MEDS: DIVALPROEX SODIUM 500 MG DR TABLET PO SCH ×2 (08:18→20:02)
[2021-02-12] MEDS: QUEtiapine FUMARATE 200 MG TABLET PO SCH ×2 (08:18→20:02)
[2021-02-12] MEDS: LORazepam 2 MG TABLET PO PRN ×2 (08:18→16:58)
[2021-02-12 08:47] VITALS: BP 102/61
[2021-02-12] MEDS: HALOPERIDOL 5 MG TABLET PO PRN ×2 (09:19→20:28)
[2021-02-12 16:12] VITALS: BP 102/62
[2021-02-12] MEDS: ZOLPIDEM TARTRATE 10 MG TABLET PO PRN (20:02)
[2021-02-13 02:16] VITALS: BP 108/71
[2021-02-13] MEDS: FERROUS SULFATE 325 MG EC TABLET PO SCH ×2 (06:38→17:01)
[2021-02-13] MEDS: LORazepam 2 MG TABLET PO PRN ×2 (08:10→17:01)
[2021-02-13] MEDS: DIVALPROEX SODIUM 500 MG DR TABLET PO SCH ×2 (08:10→20:28)
[2021-02-13] MEDS: QUEtiapine FUMARATE 200 MG TABLET PO SCH ×2 (08:10→20:28)
[2021-02-13 08:16] VITALS: BP 112/68
[2021-02-13] MEDS: HALOPERIDOL 5 MG TABLET PO PRN ×2 (09:00→17:01)
[2021-02-13 18:28] VITALS: BP 117/68
[2021-02-14 04:15] VITALS: BP 123/78
[2021-02-14] MEDS: FERROUS SULFATE 325 MG EC TABLET PO SCH ×2 (06:22→16:11)
[2021-02-14 08:18] VITALS: BP 118/69
[2021-02-14] MEDS: LORazepam 2 MG TABLET PO PRN ×2 (08:43→16:11)
[2021-02-14] MEDS: QUEtiapine FUMARATE 200 MG TABLET PO SCH ×2 (08:43→20:22)
[2021-02-14] MEDS: DIVALPROEX SODIUM 500 MG DR TABLET PO SCH ×2 (08:43→20:22)
[2021-02-14] MEDS: HALOPERIDOL 5 MG TABLET PO PRN ×2 (13:57→18:30)
[2021-02-14 16:08] VITALS: BP 107/68
[2021-02-15 05:03] VITALS: BP 115/68
[2021-02-15] MEDS: FERROUS SULFATE 325 MG EC TABLET PO SCH (06:23)
[2021-02-15] MEDS: LORazepam 2 MG TABLET PO PRN (08:03)
[2021-02-15] MEDS: QUEtiapine FUMARATE 200 MG TABLET PO SCH (08:03)
[2021-02-15] MEDS: DIVALPROEX SODIUM 500 MG DR TABLET PO SCH (08:03)
[2021-02-15 08:13] VITALS: BP 120/74
[2021-02-15] MEDS: HALOPERIDOL 5 MG TABLET PO PRN (09:15)
[2021-02-15] MEDS ORDERED: QUET200T29 PO (11:05)
[2021-02-15] MEDS ORDERED: DIVA-112 PO (11:05)
== END 2021-02-15 13:05 | disposition home or self-care (01) | DRG 750 ==
LOC: EMS 08:20 → B3A 13:57
DX: F25.0 Schizoaffective disorder, bipolar type (principal); R45.851 Suicidal ideations; E83.51 Hypocalcemia; Z59.0 Homelessness; F15.10 Other stimulant abuse, uncomplicated; D64.9 Anemia, unspecified; K21.9 Gastro-esophageal reflux disease without esophagitis; R73.9 Hyperglycemia, unspecified; Z79.899 Other long term (current) drug therapy; Z91.14 Patient's other noncompliance with medication regimen; Z20.822 Contact with and (suspected) exposure to COVID-19
CPT/HCPCS: 80053; 80061; 80164; 83036; 84436; 84439; 84443; 84703; 85025; 87426; 99285; G0480